=== PATIENT | female | born 1950 | race Caucasian/White ===

== ENCOUNTER → 2016-12-02 | Outpatient (CLI) | payer MEDICARE, OTHER ==
--- NOTE | 2016-12-02 10:16 | KCIC ---
EXAM: Right upper extremity sonogram. HISTORY: Palpable nodule within the right antecubital fossa. TECHNIQUE: Sonographic imaging of the right antecubital fossa at the site of palpable concern was performed. COMPARISON: None. FINDINGS: There is no suspicious sonographic finding within the right antecubital fossa. IMPRESSION: Unremarkable sonographic imaging of the right antecubital fossa. The possibility of a sonographically occult lesion is not excluded. Continued clinical follow-up of palpable abnormalities is recommended. Electronically signed by: Melissa Landry MD (12/02/2016 10:13 AM) [place] [id number]
--- NOTE | 2016-12-02 10:34 | KCIC ---
EXAM: Neck sonogram. HISTORY: Right submandibular nodule. TECHNIQUE: Sonographic imaging of the neck was performed. COMPARISON: None. FINDINGS: There is a solid round hypoechoic nodule with internal blood flow within the right submandibular gland at the site of palpable concern, measuring 8 x 7 x 7 mm. No additional submandibular lesion is seen. The submandibular glands are symmetric in size. IMPRESSION: 8 mm solid nodule with internal vascularity within the right submandibular gland at the site of palpable concern. This is amenable to sonographic guided biopsy for definitive diagnosis. Electronically signed by: Melissa Landry MD (12/02/2016 10:31 AM) [place] [id number]
== END | disposition home or self-care (01) ==
LOC: KCIC US 09:07
PROVIDERS: ATTEND Internal Medicine
DX: K11.8 Other diseases of salivary glands (principal); R22.31 Localized swelling, mass and lump, right upper limb
CPT/HCPCS: 76536; 76881

== ENCOUNTER 2017-01-03 08:39 | Outpatient (CLI) | payer MEDICARE, OTHER ==
[~2017-01-03] VITALS: Ht 157.5 cm; Wt 64.4 kg
[2017-01-03] MEDS ORDERED: LEVO75TA5 PO (09:07)
[2017-01-03] MEDS ORDERED: CITA40TA5 PO (09:07)
[2017-01-03 09:27] VITALS: BP 120/80
[2017-01-03] MEDS ORDERED: LIDOCAINE 1% / SOD BICARB 8.4% 20 ML VIAL. IJ ONE ×2 (09:51→10:00)
[2017-01-03 09:54] LABS: PROTHROMBIN TIME PATIENT 12.7 SEC (11.7-14.0)
[2017-01-03 10:44] VITALS: BP 124/78
--- NOTE | 2017-01-03 12:35 | RAD ---
Fine-needle aspiration of right submandibular gland nodule 01/03/2017 Indication: Right submandibular gland nodule. Discussion: The risks and benefits of the procedure were discussed the patient. Informed consent was obtained. The patient was brought to the interventional suite placed in the supine position. A timeout procedure was performed. Ultrasound evaluation of the right submandibular gland demonstrates an 8 to 9 mm homogeneous hypoechoic nodule. No internal blood flow is identified on color Doppler imaging. Once an appropriate site for skin entry was selected 1% lidocaine without epinephrine was administered to the skin. Following this, fine needle aspiration of the nodule was performed in 4 passes with a 25-gauge needle. Rotex biopsy was then performed. Samples were delivered to the catheterization laboratory technician who was present at the time of exam. Manual pressure was held for several minutes. Repeat ultrasound demonstrated no hematoma or other complication. Sterile dressing was applied. Impression: Status post fine-needle aspiration of right submandibular gland nodule as described.
--- NOTE | 2017-01-07 13:12 | PATHOLOGY ---
CYTOPATHOLOGY REPORT CLINICAL HISTORY: Right sub mandibular mass. SPECIMEN(S) RECEIVED: A.Fine needle aspiration, Right sub mandibular mass FINAL DIAGNOSIS: Fine needle aspiration, right submandibular mass: - A poorly cellular specimen with few groups of acini and few myoepithelial cells. - There is no inflammation or myxoid elements present. (see comment) COMMENT: The fine needle aspiration is not diagnostic and is poorly cellular. A neoplasm cannot be excluded. Suggest clinical correlation and re-aspiration if clinically indicated. This case is also reviewed by Dr. Parish Ferrari. (SHA:mgr; 01/07/2017) PATHOLOGIST: Long Ivey M.D. REPORT ELECTRONICALLY SIGNED BY: Long Ivey M.D. DATE/TIME: 01/07/2017 13:11 GROSS PATHOLOGY: A. Fine needle aspiration, Right sub mandibular mass: The specimen is labeled "Angy Everett" and consists of two fixed slides, two air dried slides, two H and E slides. Twenty mL of clear pink fluid in fixative from the needle rinse is also submitted and one ThinPrep slide and a alcohol fixed cell block were prepared from this material. (clt 01.03.2017) INDUSTRIAL MECHANIC(S): MATHEW Leone([facility]) INITIAL CPT CODE(S): A; 22013, 86104 Professional services performed by [facility], [address] [place] [address]. Technical services performed by [facility], [address] [place] [address], [address], [place] [address]. PATIENT: ANGY EVERETT /AGE: 307/15/1950 (Age: 66) SEX: F PATIENT #: [id number] ALT CASE #: SPECIMEN COLLECTION DATE: 01/03/2017 SPECIMEN RECEIVED DATE: 01/03/2017 [facility] [id number] [facility], [address] [place] [address] PHONE: [phone] DIRECTOR: Judd Pastor M.D. * * * END OF REPORT * * *
== END 2017-01-03 10:49 | disposition home or self-care (01) ==
LOC: INTRAD 08:39
PROVIDERS: ATTEND Otolaryngology
DX: K11.8 Other diseases of salivary glands (principal); E03.9 Hypothyroidism, unspecified; Z79.01 Long term (current) use of anticoagulants
CPT/HCPCS: 10022; 36415; 76942; 85610

== ENCOUNTER → 2017-01-20 | Outpatient (CLI) | payer MEDICARE, OTHER ==
[2017-01-03 10:44] VITALS: BP 124/78
[~2017-01-20] MED LIST: CITA40TA5 PO; IOHEXOL 300 MG/ML 100ML VIAL. IV ONE; LEVO75TA5 PO
--- NOTE | 2017-01-20 11:07 | KCIC ---
Examination: CT soft tissue neck with IV contrast HISTORY: History of lump in the right side of the neck for 6 months COMPARISON: None available TECHNIQUE: Axial CT images of soft tissue neck were performed with IV contrast. Coronal and sagittal images also performed. Exposure: One or more of the following individualized dose reduction techniques were utilized for this examination: 1. Automated exposure control 2. Adjustment of the mA and/or kV according to patient size 3. Use of iterative reconstruction technique FINDINGS: The bilateral orbital globes appear intact. The bilateral parotid glands grossly appears unremarkable. The visualized parapharyngeal spaces, tonsils, vallecula, grossly appears unremarkable. The piriform sinuses appear collapsed. The vocal cord grossly appears unremarkable. The visualized thyroid gland grossly appears unremarkable. At the site of marker placement , there is prominence of the right submandibular gland. The bilateral submandibular glands are slightly prominent. No evidence of inflammatory fat stranding identified around the submandibular glands. Tiny subcentimeter cervical level 2, level 3 lymph nodes identified. The visualized apical lungs are clear. The visualized paranasal sinuses, mastoid air cells are clear. Moderate degenerative changes cervical spine particularly at C4-C5, C5-C6, C6-C7 vertebral levels. The bilateral facets are well aligned. IMPRESSION: 1. Mild prominent appearing bilateral submandibular glands without obvious evidence of surrounding inflammatory fat stranding. Small nonspecific bilateral cervical level II and III subcentimeter lymph nodes identified. Nonspecific findings. Electronically signed by: Stan Ndiaye MD (01/20/2017 11:04 AM) [id number]
== END | disposition home or self-care (01) ==
LOC: KCIC CT 10:13
PROVIDERS: ATTEND Otolaryngology
DX: R22.1 Localized swelling, mass and lump, neck (principal)
CPT/HCPCS: 70491; 82565; Q9967

== ENCOUNTER → 2018-10-08 | Outpatient (CLI) | payer MEDICARE ==
[~2018-10-08] MED LIST changes: -IOHEXOL 300 MG/ML 100ML VIAL. IV ONE
--- NOTE | 2018-10-08 15:14 | RAD ---
CT MAXILLOFACIAL WO CONTRAST Indication: Left jaw and ear pain for 6 months Technique: Noncontrast CT imaging was performed of the maxillofacial region, multiplanar reconstruction images submitted. One or more of the following individualized dose reduction techniques were utilized for this examination: 1. Automated exposure control 2. Adjustment of the mA and/or kV according to patient size 3. Use of iterative reconstruction technique. Comparison: None Findings: There is very minimal patchy ethmoid air cell mucosal thickening, otherwise paranasal sinuses are aerated without air-fluid levels. Frontal sinus is not pneumatized. Mastoid air cells are aerated. There is some degenerative change of the left temporomandibular joint, small areas of cystic change mandibular condyle. Ostiomeatal units are patent bilaterally. There is degenerative disc disease and spondylosis C4-5, C5-6, C6-7 levels, cervical spine not fully evaluated. There is likely mild spinal stenosis C3-4-5, C5-6, C6-7 about 9 mm. There is also uncovertebral and facet degenerative change contributing to neural foramina compromise, likely more significant narrowing on the left at C3-C4, and left greater than right at C3-5-6 and C6-7 and on the right at C4-5. Right submandibular gland is not seen, relative enlargement of the left submandibular gland. IMPRESSION: 1. There is some degenerative change of the left temporomandibular joint with small foci of cystic change mandibular condyle. 2. Paranasal sinuses and mastoid air cells are overall aerated. 3. There is multilevel cervical degenerative disc disease, spondylosis, and mild spinal stenosis. There is multilevel cervical neural foramina compromise due to facet and uncovertebral degenerative change. Electronically signed by: Cortez Jesus MD (10/08/2018 3:11 PM) [facility]-KCIC1
== END | disposition home or self-care (01) ==
LOC: CT 08:31
PROVIDERS: ATTEND Internal Medicine
DX: K11.8 Other diseases of salivary glands (principal); M47.812 Spondylosis without myelopathy or radiculopathy, cervical region; M48.02 Spinal stenosis, cervical region
CPT/HCPCS: 70486

== ENCOUNTER → 2020-11-24 | Outpatient (CLI) | payer MEDICARE ==
--- NOTE | 2020-11-27 08:04 | KCIC ---
3d digital tomography Bilateral mammogram History: Routine screening Technique: Bilateral 3d digital tomographic views were obtained with [employer] and reviewed on a [employer] workstation. In addition, CAD - computer aided detection was utilized. Comparison: 01/05/2019 mammogram. Findings: Breast Tissue Density B : The breast tissue is composed of mixed fatty and fibroglandular tissue. There are no suspicious masses, microcalcifications or areas of architectural distortion. Impression: No evidence of malignancy. Assessment: BI-RADS Category 1: Negative. Recommendation: Routine annual screening mammograms. The patient will receive a letter with the results in the mail. Patient information is entered into the [facility] reminder system using [employer] with a target due date for the next screening mammogram. The patient will receive a reminder. Electronically signed by: Digna Moreno MD (11/27/2020 8:01 AM) [email or web address]
== END ==
LOC: KCIC MAMMO 11:01
PROVIDERS: ATTEND Internal Medicine
DX: Z12.31 Encounter for screening mammogram for malignant neoplasm of breast (principal)
CPT/HCPCS: 77063; 77067